=== PATIENT | female | born 1975 | race Caucasian/White ===

== ENCOUNTER 2022-08-15 10:33 | Emergency (ER) | payer SELFPAY ==
[~2022-08-15] VITALS: Ht 172.7 cm; Wt 158.8 kg
[2022-08-15] MEDS ORDERED: ONDANSETRON HCL INJ 2MG/ML 2ML 2 MG/ML VIAL IV STA (11:25)
[2022-08-15] MEDS ORDERED: DONNATAL/LIDOCAINE/MAALOX 30 ML SUSP PO ONE (11:30)
[2022-08-15] MEDS ORDERED: SODIUM CHLORIDE 0.9% 1000ML 500 ML IV ONE (11:30)
[2022-08-15] MEDS ORDERED: BELLADONNA ALK/PHENOBARBITAL 5 ML UDC ONE (11:36)
[2022-08-15] MEDS ORDERED: ONDANSETRON HCL INJ 2MG/ML 2ML 2 MG/ML VIAL ONE (11:37)
[2022-08-15] MEDS ORDERED: LIDOCAINE VISC 2% SOLN 15 ML UDC ONE (11:37)
[2022-08-15] MEDS ORDERED: MAGNESIUM/ALUMINUM/SIMETHICONE 30 ML UDC ONE (11:37)
[2022-08-15] MEDS ORDERED: SODIUM CHLORIDE 0.9% 500ML 500 ML ONE (12:13)
[2022-08-15] MEDS ORDERED: NITROFURANTOIN100 MG PO (12:24)
[2022-08-20] MEDS ORDERED: LOPRESSOR25 MG PO (07:30)
[2022-08-20] MEDS ORDERED: METFORMIN HCL500 MG PO (07:32)
[2022-08-20] MEDS ORDERED: PRAVASTATIN SOD40 MG PO ×2 (11:39→13:16)
[2022-08-20] MEDS ORDERED: LISINOPRIL5 MG PO ×2 (11:40→13:15)
== END 2022-08-15 12:46 | disposition home or self-care (01) ==
LOC: FSED 11:24
DX: R31.9 Hematuria, unspecified (principal); N39.0 Urinary tract infection, site not specified; N20.0 Calculus of kidney; R73.9 Hyperglycemia, unspecified; I10 Essential (primary) hypertension; K21.9 Gastro-esophageal reflux disease without esophagitis; J45.909 Unspecified asthma, uncomplicated; M79.7 Fibromyalgia; R94.31 Abnormal electrocardiogram [ECG] [EKG]
CPT/HCPCS: 74176; 80053; 81003; 82553; 84484; 85025; 93005; 99284; J2405; J7040

== ENCOUNTER 2022-08-17 09:46 | Inpatient (IN) | payer SELFPAY ==
[~2022-08-17] VITALS: Ht 172.7 cm; Wt 158.8 kg
[~2022-08-17 09:46] MED LIST: NITROFURANTOIN100 MG PO
[2022-08-17 11:04] LABS: BASOPHILS % 0.2 % (0.0-1.0); EOSINOPHILS # (AUTO) 0.1 (0.0-0.4); EOSINOPHILS % 0.6 % (0.0-6.0); HEMATOCRIT 41.8 % (34.2-44.1); HEMOGLOBIN 12.7 g/dL (12.0-16.0); MEAN CORPUSCULAR HEMOGLOBIN 27.5 pg (28-32); MEAN CORPUSCULAR HGB CONC 30.4 g/dL (31-35); MEAN CORPUSCULAR VOLUME 90.7 fL (81-99); MONOCYTES # (AUTO) 0.8 (0.2-0.8); NEUTROPHILS # (AUTO) 9.6 (2.1-6.9); NEUTROPHILS % 76.3 % (38.7-80.0); PLATELET COUNT 311 x10e3/uL (140-360); RED BLOOD COUNT 4.61 x10e6/uL (3.6-5.1)
[2022-08-17] MEDS ORDERED: ONDANSETRON HCL INJ 2MG/ML 2ML 2 MG/ML VIAL IV STA (11:18)
[2022-08-17 11:31] LABS: INR 0.95; PARTIAL THROMBOPLASTIN TIME 33.4 seconds (23.8-35.5); PROTHROMBIN TIME 13.5 seconds (11.9-14.5)
[2022-08-17 11:41] LABS: ALBUMIN 3.1 g/dL (3.5-5.0); ALBUMIN/GLOBULIN RATIO 0.8 (0.8-2.0); ANION GAP 14.9 mmol/L (8-16); CALCIUM 8.6 mg/dL (8.4-10.2); CREATININE, SERUM 1.28 mg/dL (0.57-1.11); MAGNESIUM 2.4 MG/DL (1.3-2.1); POTASSIUM 3.9 mmol/L (3.5-5.1)
[2022-08-17 11:47] LABS: CREATINE KINASE MB 2.7 ng/mL (0-5.0)
[2022-08-17] MEDS ORDERED: ASPIRIN 81 MG CHEW TAB PO ONE (13:00)
[2022-08-17] MEDS ORDERED: ONDANSETRON HCL INJ 2MG/ML 2ML 2 MG/ML VIAL IV PRN (13:00)
[2022-08-17] MEDS ORDERED: Morphine 2mg Syringe 2 MG/ML SYR IV PRN (13:00)
[2022-08-17] MEDS: ENOXAPARIN SODIUM INJ 100 MG/ML SYR SC SCH (13:16)
[2022-08-17] MEDS: ENOXAPARIN SOD INJ 40 MG/0.4 ML SYR SC SCH (13:16)
[2022-08-17] MEDS: FAMOTIDINE 20 MG/2 ML VIAL IV SCH (13:17)
[2022-08-17 13:43] VITALS: BP 129/63
[2022-08-17] MEDS ORDERED: LISINOPRIL10 MG PO (14:43)
[2022-08-17] MEDS ORDERED: BUPROPION XL150 MG PO (14:43)
[2022-08-17] MEDS ORDERED: CYMBALTA20 MG PO (14:43)
[2022-08-17] MEDS ORDERED: UBRELVY50 MG PO (14:43)
[2022-08-17] MEDS ORDERED: FAMOTIDINE20 MG PO (14:43)
[2022-08-17 14:44] VITALS: BP 129/63
[2022-08-17 16:00] VITALS: BP 133/80
[2022-08-17] MEDS ORDERED: UBROGEPANT 50 MG PO PRN (16:30)
[2022-08-17] MEDS ORDERED: SENNOSIDES 8.6 MG TAB PO PRN (17:00)
[2022-08-17] MEDS ORDERED: SUMATRIPTAN SUCCINATE 25 MG TAB PO PRN (17:15)
[2022-08-17] MEDS ORDERED: ACETAMINOPHEN 325 MG TAB PO PRN (17:45)
[2022-08-17 18:43] LABS: CREATINE KINASE MB 3.2 ng/mL (0-5.0)
[2022-08-17 20:00] VITALS: BP 136/88
[2022-08-17 21:00] VITALS: BP 136/88
[2022-08-18] VITALS (8 sets, daily range): BP systolic 132–164; BP diastolic 78–99
[2022-08-18] MEDS: FAMOTIDINE 20 MG/2 ML VIAL IV SCH ×2 (01:11→20:00)
[2022-08-18] MEDS: ENOXAPARIN SODIUM INJ 100 MG/ML SYR SC SCH ×2 (01:12→13:00)
[2022-08-18] MEDS: ENOXAPARIN SOD INJ 40 MG/0.4 ML SYR SC SCH ×2 (01:12→13:00)
[2022-08-18] MEDS: TRAMADOL HCL 50 MG TAB PO PRN ×2 (01:38→08:52)
[2022-08-18 02:19] LABS: CREATINE KINASE MB 2.7 ng/mL (0-5.0)
[2022-08-18 07:07] LABS: BASOPHILS % 0.2 % (0.0-1.0); EOSINOPHILS # (AUTO) 0.1 (0.0-0.4); HEMATOCRIT 40.7 % (34.2-44.1); HEMOGLOBIN 12.6 g/dL (12.0-16.0); LYMPHOCYTES # (AUTO) 1.6 (1.0-3.2); LYMPHOCYTES % 15.9 % (18.0-39.1); MEAN CORPUSCULAR HEMOGLOBIN 28.5 pg (28-32); MEAN CORPUSCULAR VOLUME 92.1 fL (81-99); MONOCYTES # (AUTO) 0.5 (0.2-0.8); MONOCYTES % 4.7 % (4.4-11.3); NEUTROPHILS # (AUTO) 7.6 (2.1-6.9); NEUTROPHILS % 76.6 % (38.7-80.0); PLATELET COUNT 272 x10e3/uL (140-360); RED BLOOD COUNT 4.42 x10e6/uL (3.6-5.1)
[2022-08-18 07:44] LABS: ALBUMIN 3.1 g/dL (3.5-5.0); ALBUMIN/GLOBULIN RATIO 0.7 (0.8-2.0); ANION GAP 12.1 mmol/L (8-16); CALCIUM 8.5 mg/dL (8.4-10.2); CHOL/HDL RATIO 4.8 (3.0-3.6); CREATININE, SERUM 1.01 mg/dL (0.57-1.11); POTASSIUM 4.1 mmol/L (3.5-5.1)
[2022-08-18 07:53] LABS: CREATINE KINASE MB 2.2 ng/mL (0-5.0)
[2022-08-18] MEDS ORDERED: FAMOTIDINE 20 MG/2 ML VIAL IV PRN (08:30)
[2022-08-18] MEDS ORDERED: METHYLPREDNISOLONE SOD SUCC 125 MG/2ML VIAL IV PRN (08:30)
[2022-08-18] MEDS ORDERED: DIPHENHYDRAMINE HCL 25 MG CAP PO PRN (08:30)
[2022-08-18] MEDS ORDERED: DIPHENHYDRAMINE HCL INJ 50 MG/ML VIAL IV PRN (08:30)
[2022-08-18] MEDS ORDERED: FAMOTIDINE 20 MG TAB PO PRN (08:30)
[2022-08-18] MEDS ORDERED: FAMOTIDINE 20 MG TAB PO SCH (09:00)
[2022-08-18] MEDS: BUPROPION HCL 150 MG TABCR PO SCH (09:00)
[2022-08-18] MEDS: DULOXETINE HCL 30 MG DELAYED RELEASE PO SCH (09:00)
[2022-08-18] MEDS ORDERED: PREDNISONE 20 MG TAB PO ONE ×2 (14:00→20:00)
[2022-08-18] MEDS ORDERED: ZOLPIDEM TARTRATE 5 MG TAB PO PRN (15:15)
[2022-08-18] MEDS: ACETAMINOPHEN/ASPIRIN/CAFFEINE 1 EA TAB PO PRN (16:29)
[2022-08-19] VITALS (8 sets, daily range): BP systolic 150–176; BP diastolic 83–99
[2022-08-19] MEDS: ENOXAPARIN SOD INJ 40 MG/0.4 ML SYR SC SCH ×2 (00:56→12:02)
[2022-08-19] MEDS: ENOXAPARIN SODIUM INJ 100 MG/ML SYR SC SCH ×2 (00:57→12:02)
[2022-08-19] MEDS ORDERED: DIPHENHYDRAMINE HCL 25 MG CAP PO ONE (02:00)
[2022-08-19] MEDS ORDERED: PREDNISONE 20 MG TAB PO ONE (02:00)
[2022-08-19] MEDS ORDERED: IOPAMIDOL 370 MG/ML 100 ML INFUS..BTL INJ ONE (02:02)
[2022-08-19] MEDS: FAMOTIDINE 20 MG/2 ML VIAL IV SCH ×2 (09:56→20:00)
[2022-08-19] MEDS: DULOXETINE HCL 30 MG DELAYED RELEASE PO SCH (09:57)
[2022-08-19] MEDS: BUPROPION HCL 150 MG TABCR PO SCH (09:57)
[2022-08-19] MEDS ORDERED: METOPROLOL TARTRATE 25 MG TAB PO ONE (22:30)
[2022-08-20] VITALS: BP 115/65
[2022-08-20 04:00] VITALS: BP 145/94
[2022-08-20] MEDS: TRAMADOL HCL 50 MG TAB PO PRN (04:27)
[2022-08-20] MEDS ORDERED: LOPRESSOR25 MG PO (07:30)
[2022-08-20] MEDS ORDERED: METFORMIN HCL500 MG PO (07:32)
[2022-08-20 08:00] VITALS: BP 128/89
[2022-08-20 08:18] VITALS: BP 128/89
[2022-08-20] MEDS: FAMOTIDINE 20 MG/2 ML VIAL IV SCH (08:48)
[2022-08-20] MEDS ORDERED: METOPROLOL TARTRATE 25 MG TAB PO SCH (09:00)
[2022-08-20] MEDS: BUPROPION HCL 150 MG TABCR PO SCH (09:21)
[2022-08-20] MEDS: DULOXETINE HCL 30 MG DELAYED RELEASE PO SCH (09:21)
[2022-08-20] MEDS: ACETAMINOPHEN/ASPIRIN/CAFFEINE 1 EA TAB PO PRN (09:22)
[2022-08-20] MEDS ORDERED: PRAVASTATIN SOD40 MG PO ×2 (11:39→13:16)
[2022-08-20] MEDS ORDERED: ASPIRIN81 MG PO (11:39)
[2022-08-20] MEDS ORDERED: LISINOPRIL5 MG PO ×2 (11:40→13:15)
[2022-08-20 11:54] VITALS: BP 141/85
[2022-08-20] MEDS ORDERED: ONDANSETRON HCL 4 MG ORAL DISINTEGRATING TAB PO PRN (12:45)
[2022-08-20] MEDS ORDERED: ENOXAPARIN SOD INJ 40 MG/0.4 ML SYR SC SCH (17:00)
[2022-08-20] MEDS ORDERED: FAMOTIDINE 20 MG TAB PO SCH (20:00)
== END 2022-08-20 14:23 | disposition home or self-care (01) | DRG 291 ==
LOC: ER 09:50 → ERHOLD 13:03 → MED/SURG 13:43
PROVIDERS: ADMIT Internal Medicine; ATTEND Internal Medicine
DX: I11.0 Hypertensive heart disease with heart failure (principal); I50.41 Acute combined systolic (congestive) and diastolic (congestive) heart failure; J96.01 Acute respiratory failure with hypoxia; N17.9 Acute kidney failure, unspecified; Z68.43 Body mass index [BMI] 50.0-59.9, adult; K21.9 Gastro-esophageal reflux disease without esophagitis; E66.01 Morbid (severe) obesity due to excess calories; R91.1 Solitary pulmonary nodule; M79.7 Fibromyalgia; Z90.49 Acquired absence of other specified parts of digestive tract; Z90.710 Acquired absence of both cervix and uterus; Z88.8 Allergy status to other drugs, medicaments and biological substances; Z91.041 Radiographic dye allergy status; Z20.822 Contact with and (suspected) exposure to COVID-19
CPT/HCPCS: 36415; 71045; 71260; 78580; 80053; 80061; 82550; 82553; 83036; 83605; 83735; 83880; 84484; 85025; 85379; 85610; 85730; 87040; 93005; 93306; 93970; 94799; 99284; A9540; J1650; J2405; J7512; Q9967

== ENCOUNTER 2024-05-25 16:46 | Emergency (ER) | payer OTHER ==
[~2024-05-25] VITALS: Ht 172.7 cm; Wt 131.5 kg
[~2024-05-25 16:46] MED LIST changes: +ASPIRIN81 MG PO; +BUPROPION XL150 MG PO; +CYMBALTA20 MG PO; +FAMOTIDINE20 MG PO; +LISINOPRIL10 MG PO; +LISINOPRIL5 MG PO; +LOPRESSOR25 MG PO; +METFORMIN HCL500 MG PO; +PRAVASTATIN SOD40 MG PO; +UBRELVY50 MG PO
[2024-05-25 16:58] VITALS: TEMP 97.9
[2024-05-25] MEDS: SODIUM CHLORIDE 0.9% 500ML 500 ML IV STA ×2 (18:01→18:40)
[2024-05-25 19:01] VITALS: PULSE 74; RESP 18
[2024-05-25 19:54] VITALS: BP 108/57; PULSE 74; RESP 18; TEMP 97.9; O2SAT 94
== END 2024-05-25 19:54 | disposition home or self-care (01) ==
LOC: FSED 16:51
DX: E86.0 Dehydration (principal); I95.9 Hypotension, unspecified; R09.02 Hypoxemia; N17.9 Acute kidney failure, unspecified; E11.22 Type 2 diabetes mellitus with diabetic chronic kidney disease; I13.0 Hypertensive heart and chronic kidney disease with heart failure and stage 1 through stage 4 chronic kidney disease, or unspecified chronic kidney disease; N18.9 Chronic kidney disease, unspecified; I50.9 Heart failure, unspecified; J45.909 Unspecified asthma, uncomplicated; Z88.6 Allergy status to analgesic agent; Z88.1 Allergy status to other antibiotic agents; Z91.041 Radiographic dye allergy status; Z91.040 Latex allergy status; Z79.84 Long term (current) use of oral hypoglycemic drugs; Z79.899 Other long term (current) drug therapy; Z79.82 Long term (current) use of aspirin
CPT/HCPCS: 71045; 80053; 81003; 82553; 83880; 84484; 85025; 93005; 99283; J7040

== ENCOUNTER 2024-08-31 18:11 | Emergency (ER) | payer OTHER ==
[~2024-08-31] VITALS: Ht 172.7 cm; Wt 131.5 kg
[2024-08-31] MEDS: FAMOTIDINE 20 MG/2 ML VIAL IV ONE (19:00)
[2024-08-31] MEDS: ONDANSETRON HCL INJ 2MG/ML 2ML 2 MG/ML VIAL IV ONE (19:00)
[2024-08-31] MEDS: KETOROLAC TROMETHAMINE 30 MG/ML VIAL IV STA (19:01)
[2024-08-31] MEDS: SODIUM CHLORIDE 0.9% 1000ML 1,000 ML IV STA (19:02)
[2024-08-31] MEDS ORDERED: KETOROLAC TROME10 MG PO (21:42)
[2024-08-31] MEDS ORDERED: ONDANSETRON ODT4 MG PO (21:42)
[2024-08-31] MEDS ORDERED: TYLENOL325 MG PO (21:42)
[2024-08-31 21:50] VITALS: BP 144/91; PULSE 86; RESP 18; TEMP 97.5
[2024-08-31 21:51] VITALS: PULSE 78; RESP 18; TEMP 98; O2SAT 98
== END 2024-08-31 21:50 | disposition home or self-care (01) ==
LOC: FSED 18:13
DX: R10.32 Left lower quadrant pain (principal); N20.0 Calculus of kidney; N13.8 Other obstructive and reflux uropathy; R31.9 Hematuria, unspecified; K57.90 Diverticulosis of intestine, part unspecified, without perforation or abscess without bleeding; I10 Essential (primary) hypertension; E11.9 Type 2 diabetes mellitus without complications; I50.9 Heart failure, unspecified; K21.9 Gastro-esophageal reflux disease without esophagitis; J45.909 Unspecified asthma, uncomplicated; M79.7 Fibromyalgia; F41.9 Anxiety disorder, unspecified
CPT/HCPCS: 74176; 80053; 81003; 85025; 99283; J1885; J2405; J7030